=== PATIENT | male | born 1975 | race African-American/Black ===

== ENCOUNTER 2017-11-17 11:57 | Inpatient (IN) | payer SELFPAY ==
[~2017-11-17] VITALS: Ht 193 cm; Wt 152.1 kg
[2017-11-17] VITALS (20 sets, daily range): BP systolic 125–157; BP diastolic 68–93
[2017-11-17] MEDS ORDERED: SODIUM CHLORIDE 0.9% 1000ML 2,000 ML ONE (12:12)
[2017-11-17] MEDS ORDERED: ASPIRIN 81 MG ENTERIC COATED PO ONE (12:20)
[2017-11-17] MEDS ORDERED: CLOPIDOGREL BISULFATE 75 MG TAB ONE ×2 (12:21)
[2017-11-17] MEDS ORDERED: SODIUM CHLORIDE 0.9% 1000ML 1,000 ML IV ONE ×2 (12:30)
[2017-11-17] MEDS ORDERED: CLOPIDOGREL BISULFATE 75 MG TAB PO ONE (12:30)
[2017-11-17] MEDS ORDERED: ASPIRIN 81 MG CHEW TAB PO ONE (12:30)
[2017-11-17] MEDS ORDERED: MIDAZOLAM HCL 2 MG/2 ML VIAL ONE (12:32)
[2017-11-17] MEDS ORDERED: LIDOCAINE HCL 2% LOCAL 20 ML VIAL ONE (12:32)
[2017-11-17] MEDS ORDERED: FENTANYL CITRATE/PF 100MCG/2 ML INJ ONE (12:32)
[2017-11-17] MEDS ORDERED: IOPAMIDOL 370 MG/ML 200 ML INFUS..BTL INJ ONE ×2 (12:32→19:47)
[2017-11-17] MEDS ORDERED: HEPARIN SOD/SOD CHLORIDE 2,000 ML ONE (12:32)
[2017-11-17] MEDS ORDERED: SODIUM CHLORIDE 0.9% 1000ML 0 ML ONE (12:33)
[2017-11-17] MEDS ORDERED: BIVALIRUDIN 250 MG/VIAL IV ONE (12:33)
[2017-11-17] MEDS ORDERED: HEPARIN SOD (PORCINE) 1000 UNIT/ML 30ML ONE (12:33)
[2017-11-17] MEDS ORDERED: SODIUM CHLORIDE 0.9% 50ML 0 ML ONE (12:34)
[2017-11-17] MEDS ORDERED: NITROGLYCERIN/D5W 200 MCG/ML 250 ML ONE (12:34)
[2017-11-17] MEDS ORDERED: EPTIFIBATIDE 0 ML ONE (12:34)
[2017-11-17 12:41] LABS: BASOPHILS % 0.4 % (0.0-1.0); EOSINOPHILS # (AUTO) 0.1 (0.0-0.4); EOSINOPHILS % 1.1 % (0.0-6.0); HEMATOCRIT 42.7 % (38.2-49.6); HEMOGLOBIN 14.9 g/dL (14.0-18.0); LYMPHOCYTES # (AUTO) 3.2 (1.0-3.2); LYMPHOCYTES % 41.1 % (18.0-39.1); MEAN CORPUSCULAR HGB CONC 34.9 g/dL (31-35); MEAN CORPUSCULAR VOLUME 88.8 fL (81-99); MONOCYTES # (AUTO) 0.7 (0.2-0.8); MONOCYTES % 8.6 % (4.4-11.3); NEUTROPHILS # (AUTO) 3.8 (2.1-6.9); NEUTROPHILS % 48.4 % (38.7-80.0); PLATELET COUNT 180 x10e3/uL (140-360); RED BLOOD COUNT 4.81 x10e6/uL (4.3-5.7); RED CELL DISTRIBUTION WIDTH 11.8 % (11.7-14.4)
[2017-11-17 12:46] LABS: INR 1.03; PARTIAL THROMBOPLASTIN TIME 21.4 seconds (23.8-35.5); PROTHROMBIN TIME 12.7 seconds (11.9-14.5)
[2017-11-17 12:54] LABS: ALANINE AMINOTRANSFERASE 35 IU/L (0-55); ALBUMIN 4.1 g/dL (3.5-5.0); ALBUMIN/GLOBULIN RATIO 1.1 (0.8-2.0); ALKALINE PHOSPHATASE 69 IU/L (40-150); ANION GAP 20.8 mmol/L (8-16); BLOOD UREA NITROGEN 8 mg/dL (7-26); BUN/CREATININE RATIO 7 (6-25); CALCIUM 9.7 mg/dL (8.4-10.2); CARBON DIOXIDE 19 mmol/L (22-29); CHLORIDE 99 mmol/L (98-107); CREATINE KINASE 140 IU/L (30-200); CREATININE, SERUM 1.21 mg/dL (0.72-1.25); EST GLOMERULAR FILTRATION RATE > 60 ML/MIN (60-); GLUCOSE 358 mg/dL (74-118); POTASSIUM 3.8 mmol/L (3.5-5.1); SODIUM 135 mmol/L (136-145)
--- NOTE | 2017-11-17 13:11 | Diagnostic Imaging Report ---
PROCEDURE: A single AP view of the chest. COMPARISON: None. INDICATIONS: SHORTNESS OF BREATH FINDINGS: Lines/tubes: None. Lungs: The lungs are well inflated and clear. There is no evidence of pneumonia or pulmonary edema. Pleura: There is no pleural effusion or pneumothorax. Heart and mediastinum: The heart and the mediastinum are unremarkable. Bones: No acute bony abnormality. IMPRESSION: 1. No acute cardiopulmonary abnormalities. Dean Bland M.D. Dictated by: Dean Bland M.D. on 11/17/2017 at 13:16 Electronically approved by: Dean Bland M.D. on 11/17/2017 at 13:16
[2017-11-17 13:13] LABS: THYROID STIMULATING HORMONE 1.149 uIU/mL (0.350-4.940)
[2017-11-17] MEDS ORDERED: SODIUM CHLORIDE FLUSH 10 ML SYR INJ PRN (13:15)
--- NOTE | 2017-11-17 14:02 | Operative Report ---
DATE OF PROCEDURE: November 17, 2017 TITLE OF PROCEDURE: Left cardiac catheterization. INDICATION: ST elevation myocardial infarction called by emergency room team. HISTORY: Patient seen very briefly. He is 42 years old who is not feeling well, dizzy, having blurry vision, chest tightness and is having some changes in his mental condition. His EKG showed to be acute anterior ST elevation myocardial infarction "STEMI" called by ER team. Patient taken to the cardiac pathology laboratory director immediately. TECHNICAL DETAILS: After the usual sterile preparation and draping procedure, no sedation was given. Local Xylocaine to the right common femoral artery. A 4-Thai sheath established in place. Geremias JL5 used to engage the left system. Pigtail for hemodynamic measurement and left ventriculogram. At the end of the procedure sheath was removed. Hemostasis achieved manually. No complication. No blood loss. RESULTS A. Coronary angiogram: 1. Single Coronary. Left main free of disease giving rise to LAD, ramus, circumflex and right coronary artery. 2. LAD minimal plaquing. 3. Ramus minimal plaquing. 4. Obtuse marginal minimal plaquing. 5. Right coronary artery single origin coming from the left main, seems to be the benign type. B. Hemodynamics: Aorta pressure 130/80. LV pressure 130/16. C. Left ventriculogram: The right anterior oblique view showed hypercontractile ventricle with an ejection fraction of 60% to 70%. IMPRESSION: No acute cardiac event. Single origin left system giving rise to a right coronary artery also as described above. COMPLICATIONS: None. BLOOD LOSS: None. Job#: [id number] HERNAN STAHL
[2017-11-17] MEDS: FAMOTIDINE 20 MG TAB PO SCH (16:29)
--- NOTE | 2017-11-17 17:14 | Diagnostic Imaging Report ---
PROCEDURE: CT scan of the chest WITH intravenous contrast, using PE protocol. TECHNIQUE: The chest was scanned utilizing a multidetector helical scanner from the lung apex through the level of the adrenal glands after the IV administration of 100 cc of Isovue 370, with special concentration on the pulmonary arteries. Coronal and sagittal multiplanar reformations were obtained. COMPARISON: None. INDICATIONS: PE FINDINGS: Exam limited by patient's body habitus and inability to raise arms Lines/tubes: None. Lungs and Airways: No filling defects in the main, right or left pulmonary arteries to the segmental level to suggest pulmonary embolism. Mixing artifact in bilateral lower lobe pulmonary vein branches. 5 mm pulmonary nodule in the right upper lobe (series 3, image 40). 2-3 mm pulmonary nodule in the right middle lobe (series 3, image 69). No other pulmonary nodules. Triangular shaped subpleural density in the lateral right middle lobe likely represents focal atelectasis or scarring (series 3, image 69). Mild bilateral lower lobe dependent atelectatic changes. No consolidation. No pulmonary masses. Airways are clear, without endobronchial lesions. Pleura: No effusion, or pneumothorax. Heart and mediastinum: Thyroid is unremarkable. Borderline cardiomegaly. Aorta is non-aneurysmal. The main pulmonary artery is enlarged, measuring 3.3 cm. Lymph nodes: No mediastinal, hilar, or axillary adenopathy. Abdomen: Limited contrast-enhanced views of the upper abdomen show no abnormality within the visualized spleen, pancreas, or left kidney. Marked steatosis, predominantly involving the right hepatic lobe. The adrenal glands are unremarkable. Bones: No aggressive lytic lesion. Soft tissues are grossly unremarkable. IMPRESSION: 1. Limited exam, as described above. No CT evidence of pulmonary embolus until the segmental level. 2. 5 mm pulmonary nodule in the right upper lobe and 2-3 mm pulmonary nodule in the right middle lobe. If this is a low risk patient, no further followup is indicated given its small size, per Fleischner Society 2017 guidelines. 3. No consolidation or effusion. 4. Borderline cardiomegaly. Enlarged main pulmonary artery suggesting pulmonary hypertension. 5. Geographic hepatic steatosis, predominantly involving the right hepatic lobe. Dean Bland M.D. Dictated by: Dean Bland M.D. on 11/17/2017 at 17:18 Electronically approved by: Dean Bland M.D. on 11/17/2017 at 17:18
[2017-11-17] MEDS ORDERED: DEXTROSE 50% SYRINGE 50 ML IV PRN (17:30)
[2017-11-17] MEDS: INSULIN LISPRO 100 UNIT/1 ML 3ML VIAL SQ SCH ×2 (17:55→21:13)
[2017-11-17 19:37] LABS: CREATINE KINASE 102 IU/L (30-200)
[2017-11-17] MEDS ORDERED: SODIUM CHLORIDE 0.9% 50ML 50 ML ONE (19:46)
[2017-11-17] MEDS: SODIUM CHLORIDE 0.9% 1000ML 1,000 ML IV SCH (20:14)
[2017-11-17] MEDS ORDERED: ACETAMINOPHEN 325 MG TAB PO PRN (20:15)
[2017-11-17] MEDS: MORPHINE SULFATE 2 MG/ML SYR IV PRN (21:25)
[2017-11-18] VITALS (21 sets, daily range): BP systolic 123–161; BP diastolic 43–107
[2017-11-18] MEDS: MORPHINE SULFATE 2 MG/ML SYR IV PRN (00:31)
[2017-11-18 02:09] LABS: CREATINE KINASE 95 IU/L (30-200)
[2017-11-18 05:52] LABS: BASOPHILS % 0.4 % (0.0-1.0); EOSINOPHILS # (AUTO) 0.1 (0.0-0.4); EOSINOPHILS % 1.6 % (0.0-6.0); HEMATOCRIT 41.4 % (38.2-49.6); HEMOGLOBIN 13.7 g/dL (14.0-18.0); LYMPHOCYTES # (AUTO) 2.4 (1.0-3.2); LYMPHOCYTES % 35.6 % (18.0-39.1); MEAN CORPUSCULAR HEMOGLOBIN 30.5 pg (28-32); MEAN CORPUSCULAR HGB CONC 33.1 g/dL (31-35); MEAN CORPUSCULAR VOLUME 92.2 fL (81-99); MONOCYTES # (AUTO) 0.7 (0.2-0.8); MONOCYTES % 9.7 % (4.4-11.3); NEUTROPHILS # (AUTO) 3.5 (2.1-6.9); NEUTROPHILS % 52.4 % (38.7-80.0); PLATELET COUNT 181 x10e3/uL (140-360); RED BLOOD COUNT 4.49 x10e6/uL (4.3-5.7); RED CELL DISTRIBUTION WIDTH 12.1 % (11.7-14.4)
[2017-11-18] MEDS: SODIUM CHLORIDE 0.9% 1000ML 1,000 ML IV SCH ×2 (06:10→15:00)
[2017-11-18 06:15] LABS: ANION GAP 12.9 mmol/L (8-16); BLOOD UREA NITROGEN 11 mg/dL (7-26); BUN/CREATININE RATIO 10 (6-25); CALCIUM 9.8 mg/dL (8.4-10.2); CARBON DIOXIDE 25 mmol/L (22-29); CHLORIDE 101 mmol/L (98-107); CHOL/HDL RATIO 8.3 (3.9-4.7); CHOLESTEROL 231 MD/DL (0-199); CREATININE, SERUM 1.06 mg/dL (0.72-1.25); EST GLOMERULAR FILTRATION RATE > 60 ML/MIN (60-); GLUCOSE 337 mg/dL (74-118); HDL CHOLESTEROL 28 MG/DL (40-60); POTASSIUM 3.9 mmol/L (3.5-5.1); SODIUM 135 mmol/L (136-145); TRIGLYCERIDES 431 MG/DL (0-149)
[2017-11-18 06:36] LABS: CLARITY,URINE CLEAR (CLEAR); COLOR,URINE YELLOW (YELLOW)
[2017-11-18 06:37] LABS: BILIRUBIN,URINE NEGATIVE (NEGATIVE); KETONES,URINE NEGATIVE (NEGATIVE); LEUKOCYTE ESTERASE ,URINE NEGATIVE (NEGATIVE); NITRITE,URINE NEGATIVE (NEGATIVE); PROTEIN,URINE DIPSTICK NEGATIVE (NEGATIVE); URINE UROBILINOGEN 0.2 mg/dL (0.2 - 1)
[2017-11-18 06:41] LABS: CREATINE KINASE 89 IU/L (30-200)
[2017-11-18 06:42] LABS: AMPHETAMINES SCREEN,URINE NEGATIVE (NEGATIVE); BENZODIAZEPINES SCREEN,URINE NEGATIVE (NEGATIVE); PHENCYCLIDINE SCREEN,URINE NEGATIVE (NEGATIVE)
[2017-11-18 06:59] LABS: BACTERIA,URINE RARE /HPF; EPITHELIAL CELLS,URINE RARE /LPF; TRANSITIONAL EPI CELLS,URINE RARE; WBC,URINE (MAN) 0-5 /HPF (0-5)
[2017-11-18] MEDS: FAMOTIDINE 20 MG TAB PO SCH (08:01)
[2017-11-18] MEDS: INSULIN LISPRO 100 UNIT/1 ML 3ML VIAL SQ SCH ×3 (08:01→16:27)
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
[2017-11-18] MEDS ORDERED: ASPIRIN 81 MG ENTERIC COATED PO SCH (09:00)
[2017-11-18] MEDS ORDERED: NICOTINE 21 MG/EA PATCH TOP SCH (09:00)
== END 2017-11-18 17:41 | disposition home or self-care (01) | DRG 287 ==
LOC: ER 11:57 → CATH LAB 12:44 → CATH LAB V 13:12 → ICU 14:00
PROVIDERS: ADMIT Internal Medicine; ATTEND Internal Medicine
PROC: 4A023N7 Measurement of Cardiac Sampling and Pressure, Left Heart, Percutaneous Approach (ICD-10-PCS; principal; 2017-11-17)
PROC: B2111ZZ Fluoroscopy of Multiple Coronary Arteries using Low Osmolar Contrast (ICD-10-PCS; 2017-11-17)
PROC: B2151ZZ Fluoroscopy of Left Heart using Low Osmolar Contrast (ICD-10-PCS; 2017-11-17)
DX: R07.89 Other chest pain (principal); I10 Essential (primary) hypertension; E78.5 Hyperlipidemia, unspecified; E11.65 Type 2 diabetes mellitus with hyperglycemia; F14.10 Cocaine abuse, uncomplicated; R91.8 Other nonspecific abnormal finding of lung field
CPT/HCPCS: 36415; 71045; 71260; 80048; 80053; 80061; 80307; 81001; 82550; 82553; 82948; 83880; 84443; 84484; 85025; 85610; 85730; 93005; 93458; 96361; 96372; 99284; C1766; J0583; J1327; J1644; J2001; J2250; J2270; J7030; Q9967

== ENCOUNTER 2020-10-23 16:19 | Emergency (ER) | payer OTHER ==
[~2020-10-23] VITALS: Ht 190.5 cm; Wt 129.3 kg
[2020-10-23] MEDS ORDERED: ASPIRIN 81 MG CHEW TAB PO ONE (16:30)
[2020-10-23] MEDS ORDERED: FAMOTIDINE 20 MG/2 ML VIAL IV ONE (16:30)
[2020-10-23] MEDS ORDERED: ASPIRIN 81 MG CHEW TAB ONE (17:25)
[2020-10-23 17:50] VITALS: BP 166/97
== END 2020-10-23 18:00 | disposition home or self-care (01) ==
LOC: FSED 16:23
DX: E11.649 Type 2 diabetes mellitus with hypoglycemia without coma (principal); I10 Essential (primary) hypertension; E78.5 Hyperlipidemia, unspecified
CPT/HCPCS: 80053; 81003; 82553; 84484; 85025; 93005; 99284